=== PATIENT | female | born 1950 | race Two or more races ===

== ENCOUNTER 2021-10-30 10:28 | Day surgery (SDC) | payer MEDICARE ==
[2021-10-28 10:01] LABS: Urine Bacteria None Seen /hpf (None Seen)
[2021-10-28 10:04] LABS: Basophils # (auto) 0 10 ^3/uL (0-0.2); Basophils % (auto) 0.6 % (0.0-2.0); Eosinophils # (auto) 0.1 10 ^3/uL (0-0.8); Eosinophils % (auto) 0.9 % (0.0-7.0); Hematocrit 41.5 % (36.0-46.0); Hemoglobin 14.3 g/dL (12.2-16.2); Lymphocytes % (auto) 27.9 % (10.0-50.0); Mean Corpuscular Hemoglobin 30.9 pg (28.0-32.0); Mean Corpuscular Hgb Conc. 34.4 g/dL (32.0-36.0); Mean Corpuscular Volume 89.7 fL (80.0-100.0); Monocytes # (auto) 0.6 10 ^3/uL (0-1.3); Monocytes % (auto) 8.1 % (0.0-12.0); Neutrophils # (auto) 4.5 10 ^3/uL (1.6-8.6); Neutrophils % (auto) 62.5 % (37.0-80.0); Red Blood Cells 4.63 10^6/uL (4.0-5.20); Red Cell Distribution Width 13.9 % (11.8-14.3); White Blood Cell 7.2 10^3/uL (4.4-10.8)
[2021-10-28 10:25] LABS: INR 0.95 (0.9-1.15); Partial Thromboplastin Time 25.6 sec (23.6-33.0)
[2021-10-28 10:38] LABS: Albumin 4.1 g/dL (3.4-5.0); Calcium 9.4 mg/dL (8.5-10.1); Potassium 3.8 mmol/L (3.5-5.1)
[2021-10-28 10:42] LABS: BUN/Creatinine Ratio 11.4; Bilirubin, Total 0.6 mg/dL (0.2-1.0); Total Protein 7.8 g/dL (6.4-8.2)
[2021-10-28 11:24] LABS: Urine Blood Negative /uL (Negative)
[2021-10-28 11:25] LABS: Urine WBC 0-5 /hpf (0 - 5)
[~2021-10-30] VITALS: Ht 154.9 cm; Wt 67.1 kg
[~2021-10-30 10:28] MED LIST: FAMO-68 PO; GABA300C10 PO; LEV50T PO; ROSU10TA16 PO
[2021-10-30] MEDS ORDERED: KETAMINE 50mg/ML 10ml Vial (500mg/10ml) IV ONE (10:29)
[2021-10-30] MEDS ORDERED: mitoMYcin 40 MG in STERILE WATER 60 ML IS ONE (11:45)
[2021-10-30] MEDS ORDERED: KETOROLAC TROMETH 30 MG/ML 1ML VIAL ONE (12:09)
[2021-10-30] MEDS ORDERED: ONDANSETRON HCL 4 MG/2 ML VIAL ONE (12:09)
[2021-10-30] MEDS ORDERED: LIDOCAINE 2% (LOCAL ANESTH.) PF 5ml SDV ONE (12:09)
[2021-10-30] MEDS ORDERED: GLYCOPYRROLATE 0.2 MG/ML 1ML VIAL ONE (12:09)
[2021-10-30] MEDS ORDERED: PROPOFOL 10 MG/ML 20 ML IV ONE (12:09)
[2021-10-30] MEDS ORDERED: MIDAZOLAM HCL 2MG/2ML 2ml VIAL (1mg/ml) ONE (12:09)
[2021-10-30] MEDS ORDERED: DexAMETHasone SOD PHOS 10MG/1ML VIAL INJ ONE (12:09)
[2021-10-30] MEDS ORDERED: fentaNYL CITRATE 100 MCG/2 ML VL ONE (12:09)
[2021-10-30] MEDS ORDERED: HYDROmorphone HCL 2 MG/ML VL/or syr ONE (12:09)
[2021-10-30] MEDS ORDERED: ceFAZolin 1GM/50ML 100 ML IV ONE (12:50)
[2021-10-30] MEDS ORDERED: NALOXONE HCL 0.4 MG/ML VIAL ONE (13:37)
[2021-10-30] MEDS ORDERED: ONDANSETRON HCL 4 MG/2 ML VIAL IV PRN (14:00)
[2021-10-30] MEDS ORDERED: HYDROmorphone HCL 2 MG/ML VL/or syr IV PRN (14:00)
[2021-10-30] MEDS ORDERED: ACCU-CHEK COMFORT CURVE STRIP VI ONE (14:00)
[2021-10-30] MEDS ORDERED: FAMOTIDINE (10MG/ML) 2ML VL IV ONE (14:22)
[2021-10-30 14:30] VITALS: BP 139/71
== END 2021-10-30 14:54 | disposition home or self-care (01) ==
LOC: SUR 10:28
PROVIDERS: ATTEND Urology
DX: D49.4 Neoplasm of unspecified behavior of bladder (principal); C67.9 Malignant neoplasm of bladder, unspecified; E11.42 Type 2 diabetes mellitus with diabetic polyneuropathy; E78.5 Hyperlipidemia, unspecified; E03.9 Hypothyroidism, unspecified; K21.9 Gastro-esophageal reflux disease without esophagitis; Z90.49 Acquired absence of other specified parts of digestive tract; Z98.890 Other specified postprocedural states; Z79.899 Other long term (current) drug therapy; Z88.1 Allergy status to other antibiotic agents; Z88.5 Allergy status to narcotic agent; Z20.822 Contact with and (suspected) exposure to COVID-19; Z79.890 Hormone replacement therapy
CPT/HCPCS: 36415; 51720; 52240; 80053; 81001; 82962; 85025; 85610; 85730; 87086; 88305; J0690; J1100; J1170; J1885; J2001; J2250; J2310; J2405; J2704; J3010; J3490; J9280; U0003